=== PATIENT | male | born 1955 | race Caucasian/White ===

== ENCOUNTER 2017-11-02 16:36 | Emergency (ER) | payer OTHER ==
[~2017-11-02] VITALS: Ht 167.6 cm; Wt 61.2 kg
[~2017-11-02 16:36] MED LIST: BENTYL 20 MG TA20 M1 PO; CARAFATE 1 GM TA1 GM PO; CIPRO500 MG PO; FLAGYL500 MG PO; NORCO 5-325 TA1 EACH PO; PEPCID20 MG PO; ROBAXIN500 MG PO; UNICOMPLEX M TA1 TA1 PO
[2017-11-02 19:05] LABS: INFLUENZA A ANTIGEN None Detected (None Detect)
[2017-11-02] MEDS ORDERED: VENTOLIN HFA 1818 GM INH (19:13)
[2017-11-02] MEDS ORDERED: TESSALON PERLE100 MG PO (19:13)
[2017-11-02 19:23] VITALS: BP 121/70
== END 2017-11-02 19:25 | disposition home or self-care (01) ==
LOC: M.ERS 16:36
PROVIDERS: Physician Assistant
DX: J10.1 Influenza due to other identified influenza virus with other respiratory manifestations (principal); F17.210 Nicotine dependence, cigarettes, uncomplicated; Z85.46 Personal history of malignant neoplasm of prostate